=== PATIENT | female | born 1980 | race American Indian/Alaskan Native ===

== ENCOUNTER 2016-08-04 19:23 | Emergency (ER) | payer OTHER ==
[2016-08-04 19:39] VITALS: BP 118/69; PULSE 78; TEMP 98.2; BMI 28.5
[2016-08-04] MEDS ORDERED: AZITHROMYCIN 250 MG TABLET (FP) PO ONE (22:00)
--- NOTE | 2016-08-04 22:08 | PDOC ---
History of Present Illness - General Chief Complaint: Ear Problem Stated Complaint: EAR PROBLEM Time Seen by Provider: 08/04/16 21:18 History Source: Patient Exam Limitations: No Limitations - History of Present Illness Initial Comments: 08/04/16 22:06 Chief complaint: Left ear pain, lumps left side of neck, lightheadedness, nausea History of present illness: Patient is a 36-year-old female with a history of asthma, and anemia with a history of bilateral fallopian tube removal here today complaining of left ear pain with tender raised lumps left side of neck with intermittent lightheadedness and generalized weakness with intermittent nausea 2 days. Patient denies any shortness of breath or difficulty swallowing. Patient reports that she was seen at [facility] emergency room on and was told that she has an upper respiratory infection. Patient denies any nasal congestion, sore throat or difficulty swallowing or any cough or shortness of breath. Patient reports that 2 of her children recently was treated for strep throat. Patient denies any fever. She denies feeling nauseous now. Patient denies any chance of . Pt.has had no recent travel. Timing/Duration: getting worse, intermittent Severity: moderate Associated Symptoms: reports: nausea/vomiting (nausea ), other (left ear pain, lightheaded intermitent for 2 days ). denies: fever/chills Past History - Past Medical History Allergies/Adverse Reactions: Allergies Allergy/AdvReac Type Severity Reaction Status Date / Time codeine Allergy Verified 01/17/16 14:05 meperidine HCl [From Demerol] Allergy Verified 08/04/16 22:07 morphine Allergy Verified 01/17/16 14:05 oxycodone HCl [From Percocet] Allergy Verified 01/17/16 14:05 Penicillins Allergy Verified 01/17/16 14:05 sertraline HCl [From Zoloft] Allergy Verified 01/17/16 14:05 opiates Allergy Severe muscle Uncoded 08/04/16 22:09 spasms Home Medications: Ambulatory Orders Azithromycin 500 mg PO DAILY #4 tablet 08/04/16 Anemia: Yes Asthma: Yes Cancer: No Cardiac Disorders: No CVA: No COPD: No CHF: No Dementia: No Diabetes: No GI Disorders: No Disorders: No HTN: No Hypercholesterolemia: No Liver Disease: No Psychiatric Problems: Yes (ANXIETY.) Suicide Attempt (Hx): No Seizures: No Thyroid Disease: No - Surgical History Abdominal Surgery: Yes Appendectomy: Yes - Reproductive History (#): 6 Para: 3 Ectopic : No Therapeutic (s) & number: No Tubal Ligation: Yes Spontaneous : 2 - Immunization History Td Vaccination: Yes Immunization Up to Date: Yes - Psycho/Social/Smoking Cessation Hx Anxiety: Yes Suicidal Ideation: No Smoking Status: No Smoking History: Never smoked Years of Tobacco Use: 0 Have you smoked in the past 12 months: No Number of Cigarettes Smoked Daily: 0 Cigars Per Day: 0 Information on smoking cessation initiated: No Hx Alcohol Use: No Drug/Substance Use Hx: No Substance Use Type: None Hx Substance Use Treatment: No Review of Systems - Review of Systems Able to Perform ROS?: Yes Constitutional: Yes: Weakness (generalized slight ). No: Symptoms Reported HEENTM: Yes: Ear Pain (left ear) Respiratory: No: Symptoms reported Cardiac (ROS): Yes: Lightheadedness (intermittent for 2 days ) ABD/GI: Yes: Nausea (intermitent for 2 days) : No: Symptoms Reported Musculoskeletal: No: Symptoms Reported Integumentary: No: Symptoms Reported Neurological: No: Symptoms reported *Physical Exam - Vital Signs Last Vital Signs Temp Pulse Resp BP Pulse Ox 98.2 F 78 17 118/69 99 08/04/16 19:36 08/04/16 19:36 08/04/16 19:36 08/04/16 19:36 08/04/16 19:36 - Physical Exam General Appearance: Yes: Appropriately Dressed HEENT: positive: EOMI, WAQAR, TMs Normal (b/l ), Pharyngeal Erythema, Tonsillar Erythema (with no uvular deviation ), Hearing Grossly Normal. negative: Tonsillar Exudate (b/), Hearing Decreased, TM Bulging, TM Dull, TM Erythema Neck: positive: Lymphadenopathy (L). negative: Tender, Lymphadenopathy (R), Tender midline Respiratory/Chest: positive: Lungs Clear, Normal Breath Sounds. negative: Chest Tender, Respiratory Distress Cardiovascular: positive: Regular Rhythm, Regular Rate, S1, S2 Integumentary: positive: Normal Color Neurologic: positive: architectural administrative assistant II-XII NML intact, Fully Oriented, Alert, Normal Response, Respond to painful stimul, Responsive, Finger to Nose. negative: Numbness, Sensory Deficit Medical Decision Making - Medical Decision Making 08/04/16 22:08 Patient is a 36-year-old female with a history of asthma, and anemia with a history of bilateral fallopian tube removal here today complaining of left ear pain with tender raised lumps left side of neck with intermittent lightheadedness and generalized weakness with intermittent nausea 2 days. Patient denies any shortness of breath or difficulty swallowing. Patient reports that she was seen at [facility] emergency room on 08/02/2016 and was told that she has an upper respiratory infection. Patient denies any nasal congestion, sore throat or difficulty swallowing or any cough or shortness of breath. Patient reports that 2 of her children recently was treated for strep throat. Patient denies any fever. She denies feeling nauseous now. Patient denies any chance of . Pt.has had no recent travel. exposure to strep throat pharyngitis lymphanopathy left tonsillar and occipital nodes on left PLAN: will treat with azithromycin 500 mg po now than daily for the following 4 days *DC/Admit/Observation/Transfer Diagnosis at time of Disposition: Exposure to Streptococcal pharyngitis Pharyngitis Qualifiers: Pharyngitis/tonsillitis etiology: unspecified etiology Qualified Code(s): J02.9 - Acute pharyngitis, unspecified - Discharge Dispostion Disposition: HOME Condition at time of disposition: Stable - Prescriptions Prescriptions: Azithromycin 500 mg PO DAILY #4 tablet - Patient Instructions Additional Instructions: Follow-up with primary care provider within the next few days Return to emergency room if any difficulty breathing or any new symptoms develop Take ibuprofen as needed as directed by pre press proofer for pain Patient voiced understanding of discharge instructions and all questions were answered
[2016-08-04] MEDS ORDERED: IBUPROFEN 400 MG TABLET (FP) PO ONE ×2 (22:11→22:14)
[2016-08-04] MEDS ORDERED: AZITHROMYCIN 250 MG TABLET (FP) ONE (22:11)
== END 2016-08-04 22:21 | disposition home or self-care (01) ==
LOC: JER 19:23 → JERFT 19:23
DX: J02.9 Acute pharyngitis, unspecified (principal)
CPT/HCPCS: 99281-25

== ENCOUNTER 2016-10-30 15:41 | Emergency (ER) | payer OTHER ==
[2016-10-30 15:52] VITALS: BP 113/73; PULSE 85; TEMP 98.2; BMI 28.5
--- NOTE | 2016-10-30 16:35 | PDOC ---
History of Present Illness - General Chief Complaint: Hives Stated Complaint: HIVES Time Seen by Provider: 10/30/16 16:04 History Source: Patient Exam Limitations: No Limitations - History of Present Illness Initial Comments: 10/30/16 16:41 36-year-old female presents to the ED with complaints of itching to bilateral arms, inner thighs, and the back of her knees for the past 3 days. Patient states symptoms began after she went to the pool where she applied baby oil. She states has been at pool before but states within hours she developed this pruritic rash to the areas. Patient states went to her doctor who prescribed a prednisone Benadryl Pepcid. Patient states completed the prednisone 20 mg daily that she was given for 3 days but states no improvement. Patient states does not use any other topicals but denies any recent travel, recent illness, recent change in detergents linens or recent exposure. Timing/Duration: reports: other (3 days) Severity: Yes: mild Location: reports: extremities Respiratory Risk Factors: reports: no cause identified Associated Symptoms: reports: hives, rash Past History - Travel Traveled outside of the country in the last 30 days: No Close contact w/someone who was outside of country & ill: No - Past Medical History Allergies/Adverse Reactions: Allergies Allergy/AdvReac Type Severity Reaction Status Date / Time codeine Allergy Verified 10/30/16 15:50 meperidine HCl [From Demerol] Allergy Verified 10/30/16 15:50 morphine Allergy Verified 10/30/16 15:50 oxycodone HCl [From Percocet] Allergy Verified 10/30/16 15:50 Penicillins Allergy Verified 10/30/16 15:50 sertraline HCl [From Zoloft] Allergy Verified 10/30/16 15:50 opiates Allergy Severe muscle Uncoded 10/30/16 15:50 spasms Home Medications: Ambulatory Orders Diphenhydramine [Benadryl 1% Cream -] 1 applic TP BID #1 tube 10/30/16 Anemia: Yes Asthma: Yes Cancer: No Cardiac Disorders: No CVA: No COPD: No CHF: No Dementia: No Diabetes: No GI Disorders: No Disorders: No HTN: No Hypercholesterolemia: No Liver Disease: No Psychiatric Problems: Yes (ANXIETY.) Suicide Attempt (Hx): No Seizures: No Thyroid Disease: No - Surgical History Abdominal Surgery: Yes Appendectomy: Yes - Reproductive History LMP Normal: Yes Is Patient Now?: No (#): 6 Para: 3 Ectopic : No Therapeutic (s) & number: No Tubal Ligation: Yes Spontaneous : 2 - Immunization History Td Vaccination: Yes Immunization Up to Date: Yes - Psycho/Social/Smoking Cessation Hx Anxiety: Yes Suicidal Ideation: No Smoking Status: No Smoking History: Never smoked Years of Tobacco Use: 0 Have you smoked in the past 12 months: No Number of Cigarettes Smoked Daily: 0 Cigars Per Day: 0 Hx Alcohol Use: Yes (social) Drug/Substance Use Hx: No Substance Use Type: None Hx Substance Use Treatment: No Patient Lives Alone: No Review of Systems - Review of Systems Able to Perform ROS?: Yes Constitutional: No: Symptoms Reported Musculoskeletal: No: Symptoms Reported Integumentary: Yes: Pruritus, Rash Neurological: No: Symptoms reported *Physical Exam - Vital Signs Last Vital Signs Temp Pulse Resp BP Pulse Ox 98.2 F 85 20 113/73 98 10/30/16 15:46 10/30/16 15:46 10/30/16 15:46 10/30/16 15:46 10/30/16 15:46 - Physical Exam General Appearance: Yes: Nourished, Appropriately Dressed. No: Apparent Distress Integumentary: positive: Other (scattered papular rash to bilateral antecubitals ,patellar folds, and upper inner thighs) Medical Decision Making - Medical Decision Making 10/30/16 16:44 Patient with pruritic rash likely due to heat rash and use of baby oh. Patient ordered for topical Benadryl. Recommend use no other lotions creams Powders, or ointments. *DC/Admit/Observation/Transfer Diagnosis at time of Disposition: Contact dermatitis Qualifiers: Contact dermatitis type: unspecified Contact dermatitis trigger: unspecified trigger Qualified Code(s): L25.9 - Unspecified contact dermatitis, unspecified cause - Discharge Dispostion Disposition: HOME Condition at time of disposition: Good - Prescriptions Prescriptions: Diphenhydramine [Benadryl 1% Cream -] 1 applic TP BID #1 tube - Referrals Referrals: Remedios Cooley MD [Primary Care Provider] - - Patient Instructions Printed Discharge Instructions: DI for Hives Additional Instructions: Please use topical as recommended for the next 5 days. Please do not put any other lotions creams powders onto her body. Keep your skin cool.
== END 2016-10-30 17:05 | disposition home or self-care (01) ==
LOC: JER 15:41 → JERFT 15:41
DX: L23.89 Allergic contact dermatitis due to other agents (principal)
CPT/HCPCS: 99281-25